=== PATIENT | female | born 1990 | race Asian ===

== ENCOUNTER 2018-12-16 00:53 | Emergency (ER) | payer OTHER ==
[2018-12-16 01:05] VITALS: BP 130/83; PULSE 78; TEMP 98.2; BMI 23.3
--- NOTE | 2018-12-16 01:38 | PDOC ---
History of Present Illness <Jackie Mckeon - Last Filed: 12/16/18 02:07> - General History Source: Patient Exam Limitations: No Limitations - History of Present Illness Initial Comments: 12/16/18 01:38 Leigh Delvalle is a 28F with PMH UTI with hematuria presenting with gross hematuria today. Patient reports that today she has been having some burning pain with urination as well as one episode of pinkish urine today. Denies fever, flank pain, abdominal pain, nausea, vomiting, chest pain, SOB, C/D. Reports a history of UTI with hematuria in the past, resolved well with ABx. No allergies to medications. Took OTC AZO for pain relief. LMP 2 weeks ago, <Tan Gallardo - Last Filed: 12/16/18 02:26> - General Chief Complaint: Hematuria Stated Complaint: BLOOD IN URINE Time Seen by Provider: 12/16/18 01:22 Past History <Jackie Mckeon - Last Filed: 12/16/18 02:07> - Past Medical History COPD: No - Psycho Social/Smoking Cessation Hx Smoking History: Never smoked Have you smoked in the past 12 months: No Information on smoking cessation initiated: No Hx Alcohol Use: No Drug/Substance Use Hx: No <Tan Gallardo - Last Filed: 12/16/18 02:26> - Past Medical History Allergies/Adverse Reactions: Allergies Allergy/AdvReac Type Severity Reaction Status Date / Time No Known Allergies Allergy Verified 12/16/18 01:04 Home Medications: Ambulatory Orders Cephalexin [Keflex] 500 mg PO BID #14 capsule 12/16/18 *Physical Exam - Vital Signs Last Vital Signs Temp Pulse Resp BP Pulse Ox 98.2 F 78 20 130/83 98 12/16/18 01:04 12/16/18 01:04 12/16/18 01:04 12/16/18 01:04 12/16/18 01:04 <Jackie Mckeon - Last Filed: 12/16/18 02:07> - Vital Signs Last Vital Signs Temp Pulse Resp BP Pulse Ox 98.2 F 78 20 130/83 98 12/16/18 01:04 12/16/18 01:04 12/16/18 01:04 12/16/18 01:04 12/16/18 01:04 <Tan Gallardo - Last Filed: 12/16/18 02:26> ED Treatment Course - ADDITIONAL ORDERS Additional order review: Laboratory Results 12/16/18 01:28 Urine Color Dk yellow Urine Appearance Clear Urine pH 6.5 Ur Specific [place] 1.023 Urine Protein 1+ H Urine Glucose (UA) Negative Urine Ketones Negative Urine Blood 1+ H Urine Nitrite Positive H Urine Bilirubin 1+ H Urine Urobilinogen 1.0 Ur Leukocyte Esterase 1+ H Urine WBC (Auto) 35 Urine RBC (Auto) 24 Urine Casts (Auto) 24 U Epithel Cells (Auto) 1.0 Urine Bacteria (Auto) 155.4 <Jackie Mckeon - Last Filed: 12/16/18 02:07> Discharge <Jackie Mckeon - Last Filed: 12/16/18 02:07> - Discharge Information Problems reviewed: Yes <Tan Gallardo - Last Filed: 12/16/18 02:26> - Discharge Information Clinical Impression/Diagnosis: UTI (urinary tract infection) Qualifiers: Urinary tract infection type: acute cystitis Hematuria presence: with hematuria Qualified Code(s): N30.01 - Acute cystitis with hematuria - Additional Discharge Information Prescriptions: Cephalexin [Keflex] 500 mg PO BID #14 capsule - Post Discharge Activity Work/Back to School Note: Back to Work
--- NOTE | 2018-12-16 01:44 | PDOC ---
Attending Attestation - Resident Resident Name: Tan Gallardo - ED Attending Attestation I have performed the following: I have examined & evaluated the patient, The case was reviewed & discussed with the resident, I agree w/resident's findings & plan - HPI HPI: 12/16/18 02:08 Pt comes with her usual hematuria and UTI; she is not sure if this is an STD but we will check and call her with results at some point. - Physicial Exam PE: 12/16/18 02:08 Normal exam - Medical Decision Making 12/16/18 03:00 Home with keflex BID x 7 days. Return for worsening symptoms.
[2018-12-16 02:03] LABS: HYALINE CASTS 24 /lpf (0-8); PH,URINE 6.5 (5.0-8.0); URINE APPEARANCE CLEAR; URINE BACTERIA 155.4 /hpf (NEGATIVE); URINE BILIRUBIN 1+ (NEGATIVE); URINE COLOR DK YELLOW; URINE GLUCOSE (UA) NEGATIVE (NEGATIVE); URINE KETONE NEGATIVE (NEGATIVE); URINE LEUK ESTERASE 1+ (NEGATIVE); URINE NITRITE POSITIVE (NEGATIVE); URINE PROTEIN 1+ (NEGATIVE); URINE RBC 24 /hpf (0-4); URINE WBC 35 /hpf (0-5)
[2018-12-16] MEDS ORDERED: CEPHALEXIN MONOHYDRATE 500 MG CAPSULE (UD) PO ONE (02:06)
[2018-12-16] MEDS ORDERED: CEPHALEXIN MONOHYDRATE 500 MG CAPSULE (UD) ONE (02:10)
== END 2018-12-16 02:26 | disposition home or self-care (01) ==
LOC: JER 00:53
DX: N30.01 Acute cystitis with hematuria (principal)
CPT/HCPCS: 36415; 81003; 84703; 87086; 87186; 87491; 87591; 99282-25

== ENCOUNTER 2019-10-19 23:20 | Emergency (ER) | payer BC, OTHER ==
[2019-10-19 23:36] VITALS: BP 105/61; PULSE 78; TEMP 98.4; BMI 24.5
--- NOTE | 2019-10-20 00:31 | PDOC ---
History of Present Illness - General Chief Complaint: Pain Stated Complaint: PAIN Time Seen by Provider: 10/20/19 00:20 History Source: Patient Exam Limitations: No Limitations - History of Present Illness Initial Comments: HPI: 29 y/o female at estimated 17 weeks gestation presenting to [facility] ER complaining of resolving lower abdominal vs pelvic pain. 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 She was not able to schedule an appointment with her OBGYN and was told to come to the ER by the nurse on the phone. States the pain started a few days ago after a work shift and is now resolving. Denies vaginal bleeding, dysuria, hematuria, back pain, chest pain, SOB, of fever. Reports feeling safe at home and in her relationship. Denies concern for personal safety. [facility] Hx: - LMP 12 June 2019 - G 3, T 0, P 0, A 2, L 0 - H/o abdominal PAP smear in 2009, colposcopy performed and revealed some abnormal dysplasia but repeat PAP at 6 months was reportedly normal. - H/o STDs Denies Medical Hx: - H/o hypothyroidism but reports her thyroid tests normalized and the medication was discontinued Review of Systems: 10 point review of systems completed. All systems negative except as noted above. Physical Examination: Vital signs and nursing notes reviewed. Constitutional- Well-developed, well-nourished adult female in no acute distress or obvious discomfort. Found sitting upright on hospital chair. Able to stand and walk unassisted to exam room. Answered all questions appropriately and completely. Head- Normocephalic. No obvious external signs of trauma. Eyes- Sclerae white. Ears- Hearing grossly intact. External auditory canals and tympanic membranes pearly kenny. Nose- No nasal discharge. Neck- Supple, trachea is midline. Cardiovascular / Chest- Regular rate and regular rhythm. No murmur, rubs, clicks, or gallops. Peripheral pulses- radial pulses full. Respiratory- Breathing unlabored. Speaking in multi-word responses without pausing. Equal chest rise and fall. Clear to auscultation bilaterally. No stridor, no wheezing, no rhonchi. Gastrointestinal- Very mild discomfort in supra-pubic region without grimace, guarding, or rebound. No LLQ or RLQ tenderness. Globally, abdomen is soft and nondistended. No overlying skin lesions or obvious signs of trauma. Neuro- Alert and oriented x4. Moving all four extremities spontaneously. No facial asymmetry. No slurred speech. Skin- Warm, dry, and intact. - No R or L CVA tenderness. Psych- Affect- appropriate. Mood- normal. Speech was non-labored, non- pressured. MDM: 29 y/o female at EGA 17 weeks presenting with four days of improving supra-pubic tenderness requesting evaluation for light duty work note. Afebrile. Triage vitals unremarkable for hypotension or tachycardia. Physical exam as described above. Suspect likely muscle strain. Low suspicion for ectopic, appendicitis, placental abruption, placenta previa, acute cystitis. UA unremarkable for pyuria, nitrites, or leukocyte esterase. Low suspicion for acute cystitis. U/S revealed single IUP at 17w4d w/ normal heart rate. No signs of placental defect. Will provide note requesting light duty for next scheduled shift. Encouraged pt to call [facility] and schedule sooner appointment for further fitness for duty evaluation. ED Attending discussed unremarkable laboratory and ultrasound findings with the pt. Case discussed with ED Attending Dr. Oneal. Chirag Lewis M.D., PGY3 Emergency Medicine Resident Past History - Medical History Allergies/Adverse Reactions: Allergies Allergy/AdvReac Type Severity Reaction Status Date / Time No Known Allergies Allergy Verified 10/19/19 23:35 Home Medications: Ambulatory Orders Cephalexin [Keflex] 500 mg PO BID #14 capsule 12/16/18 Cephalexin [Keflex] 500 mg PO BID #14 capsule 12/16/18 Doxycycline Hyclate [Vibramycin -] 100 mg PO BID #14 cap 12/19/18 Ondansetron [Zofran -] 4 mg PO BID #14 tablet 12/19/18 COPD: No - Reproductive History Is Patient Now?: Yes (#): 1 Para: 0 Cervical CA: No Dysfunctional Uterine Bleeding: No Ectopic : No Endometrial CA: No Polycystic Ovaries: No Therapeutic (s) & number: Yes Tubal Ligation: No Spontaneous : 1 - Psycho-Social/Smoking History Smoking History: Never smoked Have you smoked in the past 12 months: No - Substance Abuse Hx (Audit-C & DAST Scrn) How often the patient has a drink containing alcohol: Never Score: In Men: 4 or > Positive; In Women: 3 or > Positive: 0 Screen Result (Pos requires Nsg. Audit-10AR): Negative *Physical Exam - Vital Signs Last Vital Signs Temp Pulse Resp BP Pulse Ox 98.4 F 78 18 105/61 99 10/19/19 23:32 10/19/19 23:32 10/19/19 23:32 10/19/19 23:32 10/19/19 23:32 ED Treatment Course - RADIOLOGY Radiograph Interpretation: OB U/S: THIS IS A PRELIMINARY REPORT FROM [facility] DATE OF SERVICE: 2019-10-20 00:52:33 IMAGES: 27 EXAM: LIMITED US HISTORY: Pain COMPARISON: None. FINDINGS: Estimated age 17 weeks 4 days in cephalic presentation. Posterior placenta without previa or abruption. Normal amount of amniotic fluid for age. Normal heart rate of 142 bpm. Cervix is 4.3 cm in length and closed. IMPRESSION: Estimated age 17 weeks 4 days without definite abnormalities. THIS DOCUMENT HAS BEEN ELECTRONICALLY SIGNED Adriano Abarca MD 10/20/2019 01:31 EST Discharge - Discharge Information Problems reviewed: Yes Clinical Impression/Diagnosis: related abdominal pain of lower quadrant, antepartum, with 17 completed weeks gestation Condition: Good Disposition: HOME - Admission No - Follow up/Referral Referrals: Mary Corea MD [Staff Physician] - - Patient Discharge Instructions Patient Printed Discharge Instructions: DI for Abdominal Pain -- Early Additional Instructions: You were seen today for four days of improving lower abdominal pain while p regnant. Your urine test and ultrasound did not show any life threatening emergencies today. The pain could be from the heavy lifting at work. I have included a temporary work note. You need to call your OBGYNs office on the next business day to schedule a follow up appointment. We are not able to provide oil heaterman work notes from the emergency department. You can take over the counter Tylenol (Acetaminophen) as needed for pain. Take as directed on the package insert. Do not take more than the recommended dose. Return to the ED for new or worsening symptoms. Print Language: HUNGARIAN - Post Discharge Activity Work/Back to School Note: Back to Work
[2019-10-20 01:27] LABS: PH,URINE 7.5 (5.0-8.0); URINE APPEARANCE CLEAR; URINE BILIRUBIN NEGATIVE (NEGATIVE); URINE COLOR YELLOW; URINE GLUCOSE (UA) NEGATIVE (NEGATIVE); URINE KETONE NEGATIVE (NEGATIVE); URINE LEUK ESTERASE NEGATIVE (NEGATIVE); URINE NITRITE NEGATIVE (NEGATIVE); URINE PROTEIN NEGATIVE (NEGATIVE); URINE UROBILINOGEN 0.2 mg/dL (0.2-1.0)
--- NOTE | 2019-10-20 02:32 | PDOC ---
Documentation entered by Silvana Chen SCRIBE, acting as scribe for Verona Oneal MD. Verona Oneal MD: This documentation has been prepared by the Gustavo stevenson Xhesika, SCRIBE, under my direction and personally reviewed by me in its entirety. I confirm that the documentation accurately reflects all work, treatment, procedures, and medical decision making performed by me. Attending Attestation - Resident Resident Name: BishopChirag - ED Attending Attestation I have performed the following: I have examined & evaluated the patient, The case was reviewed & discussed with the resident, I agree w/resident's findings & plan, Exceptions are as noted - HPI HPI: 10/20/19 00:55 28y/o F, ( two prior misc / miscarriage) currently at 17 weeks , with PMH of UTI who presents to the ED with 4 days of suprapubic tenderness, progressively improving. Pt is requesting to be evaluated to know if she needs to go on light duty. 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 has been having intermittent lower abd pain. also was having vaginal discharge, described as clear sometimes yellow. no blood or vaginal bleeding. no f/c pain has resolved. is in between OB right now. was concerned she had harmed baby when lifting so here for evaluation. no f/c no cough, no sob. no other complaints. Allergies: NKDA 10/20/19 02:28 - Physicial Exam PE: 10/20/19 02:30 awake alert lungs clear bilat heart rrr no mrg abd soft nt nd ext wwp. nuero alert oriented x 3. - Medical Decision Making 10/20/19 02:30 29-year-old female here today with lower abdominal pain currently was concerned that she may be injured herself while lifting somebody heavy at her job. Currently the pain is resolved no vaginal bleeding does have occasional vaginal discharge she is currently 17 weeks has been uncomplicated thus far on my exam patient has minimal tenderness next Plan was ultrasound to evaluate wellbeing UA rule out UTI UA is negative for UTI ultrasound shows 17 weeks 4 days IUP with normal heart rate Discharge - Discharge Information Problems reviewed: Yes Clinical Impression/Diagnosis: related abdominal pain of lower quadrant, antepartum, with 17 completed weeks gestation Condition: Good Disposition: HOME - Admission No - Follow up/Referral Referrals: Mary Corea MD [Staff Physician] - Shaheed Gutierrez MD [Staff Physician] - - Patient Discharge Instructions Patient Printed Discharge Instructions: DI for Abdominal Pain -- Early Additional Instructions: You were seen today for four days of improving lower abdominal pain while . Your urine test and ultrasound did not show any life threatening emergencies today. The pain could be from the heavy lifting at work. I have included a temporary work note. You need to call your OBGYNs office on the next business day to schedule a follow up appointment. We are not able to provide rn long term care work notes from the emergency department. You can take over the counter Tylenol (Acetaminophen) as needed for pain. Take as directed on the package insert. Do not take more than the recommended dose. Return to the ED for new or worsening symptoms. Print Language: SWEDISH - Post Discharge Activity Work/Back to School Note: Back to Work
== END 2019-10-20 02:14 | disposition home or self-care (01) ==
LOC: JER 23:20
DX: O26.892 Other specified pregnancy related conditions, second trimester (principal)
CPT/HCPCS: 76815-TC; 81003; 87086; 99284-25